=== PATIENT | female | born 1955 | race Caucasian/White ===

== ENCOUNTER → 2023-12-12 07:33 | Outpatient (REF) | payer MEDICARE, OTHER, SELFPAY ==
[2023-12-12 08:42] LABS: Hematocrit 36.5 % (37.0-47.0); Hemoglobin 12.5 g/dL (12.0-16.0); Mean Corp Hgb Conc. 34.2 g/dL (33.0-37.0); Mean Corpuscular Hgb 29.3 pg (27.0-31.0); Mean Corpuscular Volume 85.5 fL (81.0-99.0); Mean Platelet Volume 11.3 fL (7.4-10.4); Platelet Count 187 10^3/uL (130-400); Red Blood Cell Count 4.27 10^6/uL (4.20-5.40); Red Cell Dist. Width 12.4 % (11.5-14.5); White Blood Cell Count 6.5 10^3/uL (4.8-10.8)
[2023-12-12 09:51] LABS: Blood Urea Nitrogen 29 mg/dl (7-17); Calcium 10.1 mg/dl (8.4-10.2); Carbon Dioxide 26 mmol/L (22-30); Chloride 104 mmol/L (98-107); Glucose 84 mg/dl (70-99); Potassium 4.3 mmol/L (3.5-5.1); Sodium 143 mmol/L (135-145); eGFR > 60.00
== END ==
LOC: SDSPAT 07:33
PROVIDERS: ATTENDING PHYSICIAN Obstetrics & Gynecology Gynecologic Oncology; FAMILY PHYSICIAN Family Medicine
DX: Z01.818 Encounter for other preprocedural examination (principal)
CPT/HCPCS: 80048; 85027; 93005

== ENCOUNTER 2024-01-07 06:55 | Day surgery (SDC) | payer MEDICARE, OTHER, SELFPAY ==
[2023-12-12 07:42] VITALS: BMI 31.0
--- NOTE | 2023-12-12 14:16 | PTCARENOTE ---
Abnormal EKG reviewed by Dr. Lange, no further action requested.
[2024-01-07] VITALS (12 sets, daily range): BP systolic 109–127; BP diastolic 65–80; BMI 31.0
--- NOTE | 2024-01-07 05:41 | HPS.HSE ---
Family Physician
-
Family Physician: Adolfo Bauer
Chief Complaint
-
cyst of ovary
History of Present Illness
67�year�old woman, previously seen 2 years ago by me, menopausal since 2008. Gynecologic care is provided by Dr. Fadi Fernandes she
has a history of Sjogren's disease, has had follow�up by medical oncology. Left ovarian cyst was identified at that time and
observation was recommended
Ultrasound dated August 30, 2023 shows complex left ovarian cyst measuring 4.2 x 2.8 x 4.4 cm, no solid ovarian masses identified,
normal ovarian vascular supply is present. There is a septated left ovarian cyst with the main component measuring 3.4 cm. Smaller
daughter cyst 1 x 2 cm is also present. The right ovary measures 1.5 cm. Uterus is 5.5 cm, endometrial stripe measures 2 mm.
Patient has had recent gynecologic examination, apparently she had a neurogenic cough during which she had some vaginal
bleeding. 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
to see [facility] [employer] oncology.
Medical History
Past Medical History
Past Medical History: Reports HTN and Hypercholesterolemia
Additional Past Medical History:
Sjogren, Carcinoid tumor, Celiac disease, Left piriformis syndrome,
Past Surgical History: Reports Other (Lung resection)
Social History
Tobacco: Non-smoker
Alcohol: Occasional
Drug: None
Family History
Family History: Not pertinent
Allergies / Home Medications
Allergies reflects when Allergies were last updated in [employer].
Home Medications with original date entered in [employer]
Allergy/Medication List:
Biaxin, CLavulonate, Zithromaz, plaquenil
Review of Systems
-
History Source: Patient
A 12 point ROS was completed and negative except as noted: Yes
Physical Exam
Physical Exam
General: Well Developed, Well Nourished and No Apparent Distress
HEENT: NormoCephalic
Respiratory: Clear
Cardiac: S1/S2 and Regular Rhythm
GI: Soft, Non Tender and Non Distended
Musculoskeletal: No Clubbing, No Cyanosis and No Edema
Skin: Warm and Dry
Neuro: Awake, Alert, Oriented and AO x 3
Hematologic/Lymphatic: No Lymphadenopathy
Psych: Calm and Intact Judgment/Insight
Laboratory Results
-
CEA 4.0High
CA125 9
143 mmol/L 135-146 Z99
Potassium 4.7 mmol/L 3.5-5.3 Z99
Chloride 108 mmol/L 98-110 Z99
CO2 27 mmol/L 20-32 Z99
Calcium 9.5 mg/dL 8.6-10.4 Z99
Total Protein 6.7 g/dL 6.1-8.1 Z99
Albumin 4.4 g/dL 3.6-5.1 Z99
Globulin 2.3 g/dL (calc) 1.9-3.7 Z99
A/G 1.9 (calc) 1.0-2.5 Z99
Bilirubin, Total 0.3 mg/dL 0.2-1.2 Z99
Alk Phos 58 U/L 37-153 Z99
AST 21 U/L 10-35 Z99
ALT 21
Data Reviewed
-
Diagnostic Radiology: Image Personally Visualized and interpreted
CT Scan: Image Personally Visualized and interpreted (Patient: Estefanía Lala - 1955 12:00:00 AM Location: [facility] Test Performed: [facility] Ordering Physician: Armando Rodriguez WAVERLY
[place], [place] [address] Patient: Estefanía Lala )
Lab Data: Labs Reviewed by me
Impression/Plan
-
IMPRESSION:
This patient has a adnexal mass on the left side which has increased in size over the course of past 2 years. Currently appears
complex although it does not have particular features of malignancy.
I do recommend that the CT of chest abdomen and pelvis is done to exclude possibility of ascites retroperitoneal adenopathy as
well as upper abdominal disease and chest disease.
I cannot exclude possibility of primary malignancy and fallopian tube or ovary, other possibility is metastatic carcinoid tumor.
Labs including CMP CBC CA125 CEA TSH urine culture will be done
PLAN:
My recommendation is to proceed with surgical treatment to include robotic assisted total laparoscopic hysterectomy bilateral
salpingo�oophorectomy, frozen section will be done of the left ovary if malignancy is present additional staging procedures to include
pelvic and aortic lymph node dissection peritoneal biopsies, omentectomy, for comprehensive staging.
Surgery will be scheduled at [facility]
Consent will be signed on the day of surgery
Packet of information containing details regarding surgery as well as pre and postoperative instructions was provided to the patient.
[2024-01-07] MEDS: HEPARIN 5000 UNITS SC (09:10)
[2024-01-07] MEDS: TYLENOL 1000 MG PO (09:10)
[2024-01-07] MEDS: NEURONTIN 300 MG PO (09:10)
[2024-01-07] MEDS: CELEBREX 200 MG PO (09:10)
[2024-01-07] MEDS: NORMOSOL-R 1000 IV (09:15)
[2024-01-07] MEDS: TRANSDERM-SCOP 1 PATCH TRANSDERM (10:46)
--- NOTE | 2024-01-07 14:30 | OR.RPT ---
Operative Report
Operative Report
Date of procedure: January 07, 2024
Preoperative diagnosis enlarging left adnexal mass, appendiceal mass
Postoperative diagnosis: Left ovary with cystadenofibroma, appendiceal mucocele
Procedure:
Robotic assisted total laparoscopic hysterectomy, bilateral salpingo-oophorectomy with pelvic washings
Robotic assisted laparoscopic appendectomy
Surgeon: Armando Alcaraz
Assist: James Judd PA-C
Anesthesia: General Plus tap block
Estimated blood loss 50 cc
Complications: None
Procedure in detail: This patient was brought to the operating room and placed in supine position, general anesthesia was administered and she was intubated without any difficulty. She was placed in lithotomy position using yellowfin stirrups, her
arms were wrapped with foam across all joints and properly padded across, placed along the patient's side. The patient was prepped and abdomen perineum and vagina and upper thighs and draped. Timeout procedure was carried out she received Ancef
and Flagyl for prophylaxis and had received DVT prophylaxis previously. Rodriguez catheter was placed for drainage of the bladder under sterile conditions. Using Baldwin retractor cervix was identified, anterior lip was grasped with single-tooth
tenaculum, the cervical canal was dilated gradually and sounded to 7 cm, rubber grinder type uterine manipulator was placed with a 3.0 cm ARABELLA cup around the cervix, vaginal cuff occluder was insufflated. Veress needle was inserted just below the left
subcostal margin. Insufflation of the abdomen with CO2 gas was accomplished up to pressure of 15 mmHg. 8 mm incision was made approximately 25 cm cephalad to symphysis pubis an 8 mm XI robotic port was placed in the abdomen, under direct
visualization 12 mm air seal port was placed in the right lower quadrant, 8 mm XI robotic ports were placed in right upper quadrant left upper quadrant and left lateral abdomen. Survey of the abdomen reveals upper abdomen including liver spleen
stomach omentum right and left paracolic gutters to be within normal limits. Bilateral diaphragms were normal. Patient was placed in 28 degree Trendelenburg. Robotic system was docked. Pelvic washings was collected and sent for cytology. Right
and left round ligaments were sealed and divided anterior and posterior leaves of the broad ligament were dissected open and retroperitoneal spaces were developed. The course of IP ligament was identified and the course of ureter was visualized and
a avascular space between these 2 were opened. Both IP ligaments were sealed with vessel sealer and divided. The left tube and ovary had some adhesions to the peritoneum of the left pelvic sidewall and the entire structure was mobilized together
but left attached to the uterus the left ovary was enlarged approximately 4 to 5 cm but had a smooth capsule. The right tube and ovary was atrophic and unremarkable and the uterus was normal. Similarly the right infundibulopelvic ligament was
sealed and divided bladder flap was sharply developed and advanced below the cervical vaginal junction. Uterine arteries followed by cardinal ligaments followed by uterosacral ligaments were serially sealed and divided circumferential incision was
made over the ARABELLA ring and the specimen was detached we removed the uterus cervix bilateral tubes and ovaries and send this to frozen section. Next our attention was diverted to the appendix the mesoappendix was sealed and divided with vessel
sealer all the way to the base of the appendix. Endo MIK stapler was fired across the base of the appendix and the cecum and a medium size vascular stapler 45 mm was fired across its base. The appendix was retrieved through the vagina. Excellent
staple line with 2 rows were present on the cecum. The vaginal cuff was then closed with 0 Vicryl suture ligature in a [id number] fashion incorporating uterosacral ligaments at both apices. V-Loc suture was used to close the cuff starting
from right to left and back to the right side in 2 layers.
Hemostasis was assured. Frozen section of the left ovary reveals cystadenofibroma without any evidence of malignancy. We went ahead and released the pneumoperitoneum, the port site 12 mm involving right lower quadrant was closed using a Xander
White system with a 0 Vicryl suture ligature. Next all laparoscopic ports were removed and the skin incisions were closed with 4-0 Monocryl in a subcuticular fashion. Vagina was inspected and there was no evidence of bleeding. Rodriguez catheter
was removed at the completion of the surgery. Patient was awake and extubated and returned back to recovery room stable condition. Counts of labs instruments and needle was correct x 2. I was present and scrubbed for entire procedure as dictated
above. Staging procedures were omitted because there was no malignancy
[2024-01-07] MEDS: SUBLIMAZE 25 MCG IV ×3 (14:50→15:18)
[2024-01-07] MEDS: ZOFRAN 4 MG IV (14:52)
== END 2024-01-07 17:30 | disposition home or self-care (01) ==
LOC: SDS 06:55
PROVIDERS: ATTENDING PHYSICIAN Obstetrics & Gynecology Gynecologic Oncology; FAMILY PHYSICIAN Family Medicine
DX: D27.1 Benign neoplasm of left ovary (principal); K38.8 Other specified diseases of appendix; D25.9 Leiomyoma of uterus, unspecified
CPT/HCPCS: 58571; 44970; 88304; 88305; 88307; 88332; 88112; 88331

== ENCOUNTER 2024-01-16 14:19 | Emergency (ER) | payer MEDICARE, OTHER, SELFPAY ==
[2024-01-16 14:25] VITALS: BP 117/80
[2024-01-16 14:47] LABS: % Basophils 0.6 % (0-2); % Immature Granulocytes 0.3 % (0-0.5); % Lymphocytes 21.5 % (20.5-51.1); % Monocytes 8.8 % (1.7-9.3); % Neutrophils 65.8 % (42.2-75.2); Absolute Basophils 0.1 10^3/uL (0-0.2); Absolute Eosinophils 0.2 10^3/uL (0-0.7); Absolute Lymphocytes 1.7 10^3/uL (1.2-3.4); Absolute Monocytes 0.7 10^3/uL (0.1-0.6); Absolute Neutrophils 5.3 10^3/uL (1.4-6.5); Hematocrit 34.8 % (37.0-47.0); Hemoglobin 11.6 g/dL (12.0-16.0); Mean Corp Hgb Conc. 33.3 g/dL (33.0-37.0); Mean Corpuscular Hgb 29.1 pg (27.0-31.0); Mean Corpuscular Volume 87.4 fL (81.0-99.0); Mean Platelet Volume 10.8 fL (7.4-10.4); Nucleated Red Blood Cells % 0 %; Platelet Count 202 10^3/uL (130-400); Red Blood Cell Count 3.98 10^6/uL (4.20-5.40); Red Cell Dist. Width 12.5 % (11.5-14.5)
[2024-01-16 14:50] LABS: Urine Albumin Trace (Neg - Trace); Urine Bilirubin Negative (Negative); Urine Character Clear (Clear); Urine Color Yellow; Urine Glucose Negative (Negative); Urine Ketone Trace (Negative); Urine Leukocyte 1+ (Negative); Urine Nitrite Negative (Negative); Urine Occult Blood Negative (Negative); Urine Specific Gravity 1.015 (<1.030); Urine Urobilinogen Negative (Neg - 1+); Urine pH 6.5 (5.0-9.0)
[2024-01-16 14:59] LABS: ALT (SGPT) 22 U/L (0-35); AST (SGOT) 29 U/L (14-36); Albumin 4.5 g/dl (3.5-5.0); Alkaline Phosphatase 60 U/L (38-126); Blood Urea Nitrogen 17 mg/dl (7-17); Calcium 9.6 mg/dl (8.4-10.2); Carbon Dioxide 29 mmol/L (22-30); Chloride 103 mmol/L (98-107); Glucose 97 mg/dl (70-99); Potassium 4.7 mmol/L (3.5-5.1); Sodium 143 mmol/L (135-145); Total Bilirubin 0.5 mg/dl (0.2-1.3); eGFR > 60.00
[2024-01-16 15:09] LABS: Urine Bacteria Few (Negative); Urine Squamous Cell 0-2 /LPF (Few)
[2024-01-16 15:10] LABS: Urine Red Blood Cell 0-2 /HPF (0-2); Urine White Cell 16-20 /HPF (0-5)
[2024-01-16 16:26] VITALS: BP 107/69
[2024-01-16] MEDS: NSS 1000 IV (17:02)
[2024-01-16] MEDS: OMNIPAQUE 50 ML PO (17:02)
[2024-01-16 19:21] VITALS: BP 121/81
[2024-01-16 20:00] VITALS: BP 103/90
--- NOTE | 2024-01-16 20:29 | ED.GENMED ---
History of Present Illness
General
Chief Complaint: Post Operative Problem(s)
Source: patient, records and physician
Exam Limitations: none
Time Seen by Provider: 01/16/24 16:16
Nursing documentation reviewed up to this point in time: agreed with
History of Present Illness
History of Present Illness:
Patient is a 68-year-old female presents to the emergency department complaining of lower abdominal pain after laparoscopic hysterectomy and appendectomy that was done 8 days ago. Patient had discomfort in the first 24 to 48 hours but seemed to do
better and then began to get some pain. Patient also noticed a brown-yellowish discharge. Patient denies fever or chills, nausea, vomiting or diarrhea. Patient denies any dysuria, hematuria, urgency or frequency. Patient did have her appendix
removed for mass on it as well as a left ovarian cyst. Patient spoke with her patient experience coordinator and was referred to the emergency department.
Past History
Past History
ED Past Medical History: HTN and Other (Celiac disease)
ED Past Surgical History: Cholecystectomy
Social History
Tobacco: Non-smoker
Alcohol: None
Drug: None
Personal:
Living: with family
Employment: Employed
Family History
Family History: Other
Review of Systems
Review of Systems
All Other Systems: ROS reviewed and negative except as documented in HPI and ROS
Constitutional: Denies fever or chills
EENT: Reports no symptoms
Respiratory: Reports no symptoms
Cardiac: Reports no symptoms
ABD/GI: Reports abdominal pain and anorexia; Denies nausea, vomiting, diarrhea, constipated, bloody stools or black stools
: Reports discharge; Denies dysuria, frequency, flank pain, urgency or bleeding
Musculoskeletal: Reports no symptoms
Skin: Reports no symptoms
Neurological: Reports no symptoms
Hematologic/Lymphatic: Reports no symptoms
Phy Exam
Physical Exam
Physical Exam:
Physical Exam
General: minimal distress, alert and appropriate, well nourished, mildly dry mucous membranes
HENT: Normocephalic, supple with no lymphadenopathy, no thyromegaly
Eyes: Clear sclera, conjuctiva without injection
Heart: Regular rhythm and rate. No S3, S4. No murmur.
Lungs: No respiratory distress, no stridor, lung sounds clear and equal bilaterally, chest wall symmetrical and nontender
Abdomen: Soft, mild diffuse lower abdominal tenderness without guarding or rebound and well-healing surgical wounds in the upper abdomen surrounded by ecchymosis which are nontender, no organomegaly, no CVA tenderness, BS good
Neuro: Alert and oriented x 3, CN II - XII intact, no motor focality, no cerebellar dysfunction
Skin: no rash
Psychiatric: well kept. interactive and cooperative
Extremities: No edema, cyanosis, tenderness, Good and equal peripheral pulses.
Course
Orders/Labs/Results
Orders:
Orders
01/16/24 14:36
Complete Blood Count/With Diff Urgent
Comprehensive Metabolic Panel Urgent
Urinalysis Reflex To Culture Urgent
Date Specimen was Collected: 01/16/24
Time Specimen was Collected: 14:29
Urine Microscopic Reflex Cult Urgent
Urine Culture Urgent
LEISA Source: U
Specimen Description:
Date Specimen was Collected: 01/16/24
Time Specimen was Collected: 14:29
01/16/24 16:52
CT Abd/pel W Iv And Oral Contr Urgent
Comment:
Reason For Exam: lower abd tender post surgical
0.9% Sodium Chloride 1000 ml [Nss] 1,000 ml IV BOLUS
Iohexol [Omnipaque] See Protocol PO NOW STA
Abnormal Lab Results
01/16/24
14:36
RBC 3.98 L 10^6/uL
(4.20-5.40)
Hgb 11.6 L g/dL
(12.0-16.0)
Hct 34.8 L %
(37.0-47.0)
MPV 10.8 H fL
(7.4-10.4)
Absolute Monos (auto) 0.7 H 10^3/uL
(0.1-0.6)
Urine Ketones Trace A
(Negative)
Leukocyte Esterase Rfl 1+ A
(Negative)
Urine WBC (Reflex) 16-20 A /HPF
(0-5)
Urine Bacteria (Reflex) Few A
(Negative)
01/16/24 14:36
01/16/24 14:36
Vital Signs
Initial and Last Documented VS:
Initial Vital Signs
Temp Pulse Resp BP Pulse Ox
99.3 F 84 18 117/80 98
01/16/24 14:25 01/16/24 14:25 01/16/24 14:25 01/16/24 14:25 01/16/24 14:25
Last Documented Vital Signs
Temp Pulse Resp BP Pulse Ox
99.3 F 84 18 121/81 97
01/16/24 14:25 01/16/24 14:25 01/16/24 14:25 01/16/24 19:21 01/16/24 19:45
*Radiology
Radiology exam reviewed: radiology read reviewed (CT unremarkable)
*Pulse Oximetry
Patient hypoxic: no
*EKG
Interpreted by ED Provider?: NA
*Principal Technical Architect Interpretation
Rate: Principal Technical Architect- N/A
*Critical Care Note
Total Time (30-74mins, 75-104mins- exclusive of procedures): Not Applicable
Update Note
Update Note:
I spoke with patient's surgeon and discussed the findings. He will follow-up with her in the office. At this point no further treatment other than symptomatic.
ED Attending Note
-
Portions of this chart may have been created with voice recognition software.� Occasional wrong word or��sound alike� substitutions may have occurred due to the inherent limitations of voice recognition software.
Discharge Plan
Departure
Patient Disposition: Home (Routine Discharge)
Date of Disposition: 01/16/24
Time of Disposition: 20:35
Patient with high blood pressure during this ER visit?: No
Condition: Fair
Covid-19: Not Applicable
Discharge Problem:
Postoperative pain
Instructions: Postoperative Pain (DC)
Prescriptions:
No Action
oxcarbazepine [Trileptal] 150 MG tablet
150 mg PO BID
sertraline 100 MG tablet
100 mg PO DAILY
ascorbic acid (vitamin C) [Vitamin C] 500 mg Tablet
500 mg PO DAILY Qty: 0
cholecalciferol (vitamin D3) [Vitamin D3] 10 mcg (400 unit) Capsule
10 mcg PO DAILY Qty: 0
calcium carbonate-vitamin D3 [Oyster Shell Calcium-Vit D3] 500 MG tablet
1 tab PO DAILY
pilocarpine HCl 5 mg Tablet
5 mg PO TID
valacyclovir 1 gram Tablet
1,000 mg PO DAILY PRN (Reason: Mouth Sores)
meloxicam 15 mg Tablet
15 mg PO DAILY
glucosamine sulfate [Glucosamine] 500 mg Tablet
1,500 mg PO DAILY
gabapentin 300 mg Capsule
300 mg PO HS
albuterol sulfate 90 mcg/actuation Hfa Aerosol Inhaler
2 mcg INHALATION PRN PRN (Reason: SOB)
rosuvastatin [Crestor] 20 mg Tablet
20 mg PO DAILY
amlodipine-valsartan 10-320 mg Tablet
1 tab PO DAILY
Centrum Ultra Women's 18-400 mg-mcg Tablet
1 tab PO DAILY
ipratropium bromide
1 dose inhalation BID
Xiidra 5 % Dropperette
1 drp OPHTHALMIC (EYE) BID
Referrals:
Adolfo Bauer MD [Family Provider] - Follow up in 5-7 days
Activity Restrictions/Additional Instructions:
Call your surgeon tomorrow to follow-up. Otherwise continue your present medications. You may use acetaminophen 1000 mg or ibuprofen 400 mg every 6 hours for pain. Try heat or cold whichever feels better to the area.
Interventions
Interventions:
*Risk Screen - Suicide Last Done: 01/16/24 14:25
*General Assessment Last Done: 01/16/24 14:25
ED- Fall Risk Assessment Last Done: 01/16/24 17:15
*ED COVID-19 Vaccine History Last Done: 01/16/24 16:22
ED-Skin Assessment Last Done: 01/16/24 16:22
Discharge Date and Time
Print Language: SLOVENIAN
[2024-01-16 20:36] VITALS: BP 103/90
== END 2024-01-16 20:47 | disposition home or self-care (01) ==
LOC: EMR 14:19
PROVIDERS: EMERGENCY PHYSICIAN Emergency Medicine; FAMILY PHYSICIAN Family Medicine
DX: R10.30 Lower abdominal pain, unspecified (principal); N89.8 Other specified noninflammatory disorders of vagina; G89.18 Other acute postprocedural pain; I10 Essential (primary) hypertension; K90.0 Celiac disease; K57.90 Diverticulosis of intestine, part unspecified, without perforation or abscess without bleeding; G62.9 Polyneuropathy, unspecified; M81.0 Age-related osteoporosis without current pathological fracture; Z85.118 Personal history of other malignant neoplasm of bronchus and lung; Z87.891 Personal history of nicotine dependence; Z90.49 Acquired absence of other specified parts of digestive tract; Z90.2 Acquired absence of lung [part of]; Z88.1 Allergy status to other antibiotic agents; Z88.8 Allergy status to other drugs, medicaments and biological substances; Z91.018 Allergy to other foods
CPT/HCPCS: 99285; 96360; 74177; 80053; 81003; 81015; 85025; 87086; Q9967

== ENCOUNTER → 2024-03-10 11:13 | Outpatient (REF) | payer MEDICARE, OTHER, SELFPAY | LOC: MRI 3T 11:13 | PROVIDERS: ATTENDING PHYSICIAN Obstetrics & Gynecology Gynecologic Oncology; FAMILY PHYSICIAN Family Medicine | DX: C7A.090 Malignant carcinoid tumor of the bronchus and lung (principal); D27.0 Benign neoplasm of right ovary; R19.04 Left lower quadrant abdominal swelling, mass and lump; C56.9 Malignant neoplasm of unspecified ovary; R30.0 Dysuria | CPT/HCPCS: 72197; A9575 ==